=== PATIENT | male | born 1980 | race Caucasian/White ===

== ENCOUNTER 2017-10-11 01:32 | Inpatient (IN) | END 2017-10-18 18:20 | disposition home or self-care (01) | DRG 638 ==

== ENCOUNTER 2017-10-20 07:40 | Inpatient (IN) | END 2017-10-23 18:30 | disposition home or self-care (01) | DRG 74 ==

== ENCOUNTER 2017-12-02 03:35 | Inpatient (IN) | END 2017-12-06 13:28 | disposition home or self-care (01) | DRG 74 ==

== ENCOUNTER 2017-12-18 20:10 | Inpatient (IN) | END 2017-12-21 15:53 | disposition home or self-care (01) | DRG 74 ==

== ENCOUNTER 2017-12-31 05:20 | Inpatient (IN) | END 2018-01-01 22:25 | disposition home or self-care (01) | DRG 74 ==

== ENCOUNTER 2018-03-18 10:48 | Emergency (ER) | END 2018-03-18 14:40 | disposition home or self-care (01) ==

== ENCOUNTER 2018-03-27 07:32 | Observation (INO) | END 2018-03-28 14:45 | disposition home or self-care (01) ==

== ENCOUNTER 2018-04-05 20:31 | Emergency (ER) | END 2018-04-06 02:50 | disposition short-term general hospital (02) ==